=== PATIENT | female | born 1960 | race Caucasian/White ===

== ENCOUNTER → 2016-10-29 | Outpatient (CLI) | payer BC ==
[~2016-10-29] MED LIST: DIPH25CA65; GADAVIST IV PRN; PRED10TA PO
--- NOTE | 2016-10-29 19:44 | DIAGNOSTIC IMAGING REPORT ---
MRI OF THE BRAIN COMBO CLINICAL HISTORY: Headache. History of colon cancer. COMPARISON STUDY: No priors. TECHNIQUE: MRI of the brain was performed utilizing various T1 and T2-weighted sequences in the axial, sagittal, and coronal planes. Contrast-enhanced sequences were acquired following the administration of 8 cc of Gadavist. FINDINGS: Brain parenchyma: There is minimal patchy subcortical and periventricular microangiopathic disease. The brain parenchyma is otherwise normal in appearance. There is no hemorrhage or mass effect. There is no restricted diffusion to suggest acute ischemia. No enhancing mass lesion is identified on the postcontrast images. Cronin-white matter differentiation is preserved. No extra-axial fluid collection is seen. The cerebellar tonsils are normal in configuration. Ventricles, sulci, and cisterns: Normal in configuration. Pituitary and sella: Unremarkable. Intracranial vasculature: Normal flow voids are maintained at the skull base. Orbits: The bony orbits are grossly intact. Orbital contents are normal in appearance. Sinuses and mastoids: Clear. Calvarium: Unremarkable. Cervical cord: Partially visualized cervical spinal cord is normal in morphology and signal intensity. IMPRESSION: No acute intracranial abnormality. Electronically signed by: Abilio Tanner M.D. 10/29/2016 7:43 PM Dictated Date/Time: 10/29/2016 7:39 PM
== END | disposition home or self-care (01) ==
LOC: C.MRI 18:35
PROVIDERS: ATTEND Internal Medicine Hematology & Oncology
DX: C18.7 Malignant neoplasm of sigmoid colon (principal); C78.7 Secondary malignant neoplasm of liver and intrahepatic bile duct

== ENCOUNTER → 2017-02-21 | Outpatient (CLI) | payer BC ==
[~2017-02-21] MED LIST changes: -GADAVIST IV PRN; +MethylPREDNISolone HOME PACK 16 MG TAB PO SCH; +OPTIRAY 320 IV PRN
--- NOTE | 2017-02-21 09:24 | DIAGNOSTIC IMAGING REPORT ---
(CHEST) THORAX WITH HISTORY: 56 years-old Female SIGMOID COLON CA follow-up exam. COMPARISON: CT chest 07/01/2016 TECHNIQUE: Multiple axial CT images of the chest were obtained following the intravenous administration of 92 mL Optiray 320. FINDINGS: The left thyroid lobe is asymmetrically larger than the right. No focal thyroid nodule is identified. Right pectoral Nbavky-h-[id number] catheter terminates just superior to the superior cavoatrial junction. There is no pathologic-appearing adenopathy about the chest. Heart is normal in size without pericardial effusion. There is mild atherosclerosis of the aorta. Linear subsegmental pleural based opacities of the lung bases, notably the lingula and right middle lobe compatible with atelectasis and pleural parenchymal scarring. There is no pneumothorax or pleural effusion. 3 mm groundglass nodule in the apical posterior segment left upper lobe is unchanged from comparison suggesting benign etiology. A few areas of nodularity along the posterior left chest wall suggest areas of atelectasis. There is minimal mosaic attenuation of the lung bases suggesting air trapping. The central airways are patent. Prior cholecystectomy. 4 mm low attenuating lesion of the posterior right hepatic lobe too small to characterize, however appears unchanged from comparison suggesting benign etiology. Soft tissues are unremarkable. There are no suspicious lytic or blastic bony lesions identified. Multilevel endplate spurring is seen throughout the thoracic spine which is mild to moderate. IMPRESSION: 1. Stable appearance of the chest without evidence of metastatic disease or pathologic adenopathy. 2. Bibasilar atelectasis with areas of subsegmental pleural parenchymal scarring. There is mild air trapping of the right lung base. The above report was generated using voice recognition software. It may contain grammatical, syntax or spelling errors. Electronically signed by: Agustín Reardon M.D. 02/21/2017 9:23 AM Dictated Date/Time: 02/21/2017 9:17 AM
--- NOTE | 2017-02-21 10:17 | DIAGNOSTIC IMAGING REPORT ---
ABD/PELVIS IV CONTRAST ONLY CLINICAL HISTORY: 56 years-old Female presenting with SIGMOID COLON CA. TECHNIQUE: Multidetector CT of the abdomen and pelvis was performed after the administration of oral and intravenous contrast. IV contrast: 92 mL of Optiray 320. A dose lowering technique was used consistent with the principles of ALARA (as low as reasonably achievable). COMPARISON: 07/01/2016 and 12/29/2015. CT DOSE (mGy.cm): The estimated cumulative dose is 761.[address] FINDINGS: [employer] Director topogram: Cholecystectomy clips. Right subclavian Mediport. Lung bases: Minimal dependent opacities likely atelectasis. Liver: Normal morphology. Postsurgical changes along the posterior medial aspect of segment 7 from prior wedge resection. Subcentimeter lesion in the posterior right hepatic lobe is unchanged from prior contrast-enhanced study. No new suspicious lesions. Patent hepatic vasculature. Biliary: Mild intrahepatic biliary ductal prominence likely a reservoir effect in the post cholecystectomy state. Surgically absent. Pancreas: Normal. Spleen: Normal. Adrenal glands: Normal. Kidneys and ureters: Bilateral extrarenal pelvises. No hydronephrosis. Gastrointestinal tract: Postsurgical changes of sigmoidectomy. No abnormal soft tissue at the anastomosis. Mild stool burden proximal to the anastomosis in the mildly distended colon. No bowel obstruction. Peritoneal cavity: No free fluid or intraperitoneal gas. Bladder: Normal. Pelvic organs: Uterus surgically absent. No adnexal masses. Metallic foreign body in the region of the vaginal introitus, possibly associated with the urethra. Vasculature: Mild atherosclerosis of the normal caliber abdominal aorta. IVC patent. Lymph nodes: No enlarged lymph nodes in the abdomen or pelvis. Abdominal wall: Postsurgical changes along the midline lower abdominal wall with biostasis of the rectus abdominis. Musculoskeletal: No destructive osseous lesion. IMPRESSION: 1. No evidence of metastatic disease in the abdomen or pelvis. 2. Postsurgical changes of right hepatic lobe wedge resection. Electronically signed by: Everardo Cain M.D. 02/21/2017 10:16 AM Dictated Date/Time: 02/21/2017 10:03 AM
== END | disposition home or self-care (01) ==
LOC: C.CTS 08:41
PROVIDERS: ATTEND Nurse Practitioner Family
DX: C18.7 Malignant neoplasm of sigmoid colon (principal); C78.7 Secondary malignant neoplasm of liver and intrahepatic bile duct; K59.00 Constipation, unspecified

== ENCOUNTER → 2018-03-04 | Outpatient (CLI) | payer BC ==
[~2018-03-04] MED LIST changes: -MethylPREDNISolone HOME PACK 16 MG TAB PO SCH
--- NOTE | 2018-03-04 12:08 | DIAGNOSTIC IMAGING REPORT ---
CT (CHEST) THORAX WITH CT DOSE: 1032.22 mGycm HISTORY: Colon carcinoma CT TECHNIQUE: Multiaxial CT images of the chest were performed following the intravenous administration of contrast. A dose lowering technique was utilized adhering to the principles of ALARA. COMPARISON: 02/21/2017 FINDINGS: Focal atelectasis right posterior costophrenic angle. Mild chronic thickening left major fissure. Lungs otherwise appear clear. No significant parenchymal nodularity. Hilar and mediastinal regions show several small reactive nodes less than 6 mm. No significant adenopathy is appreciated. Adrenal masses are normal. IMPRESSION: 1. Scattered atelectasis. Otherwise negative CT of the chest. No change from the prior study. The above report was generated using voice recognition software. It may contain grammatical, syntax or spelling errors. Electronically signed by: Miguel Angel Mueller M.D. 03/04/2018 12:07 PM Dictated Date/Time: 03/04/2018 12:05 PM
--- NOTE | 2018-03-04 12:28 | DIAGNOSTIC IMAGING REPORT ---
ABDOMEN AND PELVIS CT WITH IV AND ORAL CONTRAST CT DOSE: HISTORY: Colon cancer. TECHNIQUE: Multiaxial CT images of the abdomen and pelvis were performed following the use of intravenous and oral contrast. A dose lowering technique was utilized adhering to the principles of ALARA. COMPARISON STUDY: Abdomen and pelvis CT 02/21/2017. FINDINGS: Stable 2 mm subpleural nodule within the right middle lobe on image 27. This is likely benign. Bibasilar linear densities consistent with subsegmental atelectasis. No pneumoperitoneum. No pneumatosis. No suspicious lytic or blastic osseous lesions. Tiny fat-containing midline supraumbilical hernia. Cholecystectomy. Stable 5 mm hypodense lesion within the posterior segment of the right hepatic lobe. This is too small to characterize but favors a cyst. No new or suspicious hepatic lesions. The pancreas, spleen, and adrenal glands are unremarkable. Mild fullness within the bilateral renal collecting systems without conchis hydronephrosis. The cement unchanged. The kidneys enhance normally. No retroperitoneal or mesenteric lymphadenopathy. The bladder is unremarkable. Hysterectomy. Anastomotic suture material at the distal sigmoid colon. No bowel wall thickening or obstruction. Moderate well-formed stool seen throughout the colon. Prior right hepatic lobe with resection. IMPRESSION: No change compared to the prior study. No evidence for metastatic disease within the abdomen or pelvis. Electronically signed by: Emanuel Pham M.D. 03/04/2018 12:27 PM Dictated Date/Time: 03/04/2018 12:14 PM
== END | disposition home or self-care (01) ==
LOC: C.CTS 10:47
PROVIDERS: ATTEND Nurse Practitioner Family
DX: C18.7 Malignant neoplasm of sigmoid colon (principal); J98.11 Atelectasis